=== PATIENT | female | born 1980 | race African-American/Black ===

== ENCOUNTER 2017-12-14 05:35 | Day surgery (SDC) | payer BC, OTHER ==
[2017-12-13 10:36] VITALS: BMI 29.7
--- NOTE | 2017-12-14 13:25 | HP ---
Past Medical History - Primary Care Physician PCP:: Benjamín Coto - Admission Chief Complaint: heavy menses, r/o EM polyp History of Present Illness: 37 yo f , , with hx of menorrhagia , admitted for hysteroscopy D&C , r/o EM polyp. rba discussed History Source: Patient Limitations to Obtaining History: No Limitations - Past Medical History Heme/Onc: Yes: Anemia (iron def, anemia) - Past Surgical History Hx Myomectomy: No Hx Transabdominal Cerclage: No - Smoking History Smoking history: Never smoked Have you smoked in the past 12 months: No Aproximately how many cigarettes per day: 0 - Alcohol/Substance Use Hx Alcohol Use: Yes (1 SHOT OF SAROC ON WEEKENDS) - Social History Usual Living Arrangement: Yes: With Spouse History of Recent Travel: No Home Medications - Allergies Allergies/Adverse Reactions: Allergies Allergy/AdvReac Type Severity Reaction Status Date / Time oxycodone [From Percocet] Allergy Severe Difficulty Verified 12/14/17 11:11 Breathing acetaminophen [From Percocet] Allergy Verified 12/14/17 11:10 - Home Medications Home Medications: Ambulatory Orders Ibuprofen [Motrin -] 600 mg PO Q4H PRN #1 tablet 09/09/13 Floridix Liquid Fe 10 ml PO BID 12/13/17 Review of Systems - Review of Systems Constitutional: reports: No Symptoms Eyes: reports: No Symptoms HENT: reports: No Symptoms Neck: reports: No Symptoms Cardiovascular: reports: No Symptoms Respiratory: reports: No Symptoms Gastrointestinal: reports: No Symptoms Genitourinary: reports: No Symptoms Breasts: reports: No Symptoms Reported Musculoskeletal: reports: No Symptoms Integumentary: reports: No Symptoms Neurological: reports: No Symptoms Endocrine: reports: No Symptoms Hematology/Lymphatic: reports: No Symptoms Psychiatric: reports: No Symptoms 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 Vital Signs: Vital Signs Temperature 98.6 F 12/14/17 11:05 Pulse Rate 72 12/14/17 11:05 Respiratory Rate 16 12/14/17 11:05 Blood Pressure 107/57 12/14/17 11:05 O2 Sat by Pulse Oximetry (%) 100 12/14/17 11:09 Constitutional: Yes: Well Nourished, No Distress, Calm Eyes: Yes: WNL, Conjunctiva Clear, EOM Intact HENT: Yes: WNL, Atraumatic, Normocephalic Neck: Yes: WNL, Supple, Trachea Midline Cardiovascular: Yes: WNL, Regular Rate and Rhythm Respiratory: Yes: WNL, Regular, CTA Bilaterally Gastrointestinal: Yes: WNL ...Rectal Exam: Yes: WNL Renal/: Yes: WNL Pelvis: Yes: WNL External Genitalia: Yes: Normal Vaginal Exam: Yes: Normal Cervix: Yes: Normal Uterus: Yes: Normal Adnexa: Not Palpable: Left, Right Breast(s): Yes: WNL Musculoskeletal: Yes: WNL Extremities: Yes: WNL Integumentary: Yes: WNL Neurological: Yes: WNL, Alert, Oriented ...Motor Strength: WNL Psychiatric: Yes: WNL, Alert, Oriented Problem List - Problem (1) Menorrhagia Code(s): N92.0 - EXCESSIVE AND FREQUENT MENSTRUATION WITH REGULAR CYCLE Qualifiers: Menorrahagia type: with regular cycle Qualified Code(s): N92.0 - Excessive and frequent menstruation with regular cycle (2) Anemia Code(s): D64.9 - ANEMIA, UNSPECIFIED Qualifiers: Anemia type: iron deficiency Iron deficiency anemia type: chronic blood loss Qualified Code(s): D50.0 - Iron deficiency anemia secondary to blood loss (chronic) Assessment/Plan hysteroscopy, D&C
[2017-12-14] MEDS ORDERED: PROPOFOL 20 ML ONE ×2 (13:59)
[2017-12-14] MEDS ORDERED: MIDAZOLAM HCL 2 MG/2 ML SINGLE DOSE VIAL ONE (13:59)
[2017-12-14] MEDS ORDERED: oxyCODONE HCL 5 MG TABLET PO PRN ×2 (14:52→15:37)
[2017-12-14] MEDS ORDERED: IBUPROFEN 600 MG TABLET (FP) PO PRN (14:52)
[2017-12-14] MEDS ORDERED: IBUPROFEN 800 MG/8 ML IJ IVPB PRN (14:52)
[2017-12-14] MEDS ORDERED: ONDANSETRON 4 MG/2 ML VIAL IVPUSH PRN (14:52)
[2017-12-14] MEDS ORDERED: ELECTROLYTE-148 SOLN 1,000 ML IV SCH (15:00)
[2017-12-14] MEDS ORDERED: LACTATED RINGERS SOLUTION 1,000 ML IV SCH (16:00)
[2017-12-14 18:42] VITALS: BP 110/64; PULSE 72; TEMP 97.8
--- NOTE | 2017-12-16 10:16 | PATH ---
Surgical Pathology Report Patient Name: EMETERIO BRIGHT [facility]. Rec. #: [id number] /Age/Gender: 1980 (Age: 37) / F Account: [id number] Location: [facility] Taken: 12/14/2017 Received: 12/15/2017 Reported: 12/16/2017 Physicians: Benjamín Coto M.D. Specimen(s) Received ENDOMETRIAL CURETTINGS Clinical History Excessive and frequent menstruation Final Diagnosis ENDOMETRIAL CURETTING, DILATION AND CURETTAGE: FRAGMENTS OF ENDOMETRIAL POLYP AND BENIGN EXOCERVICAL TISSUE. Electronically Signed Clary Carbajal M.D. Gross Description Received in formalin labeled "endometrial curetting," is a 2.3 x 2.0 x 0.3 cm aggregate of wilder soft tissue fragments. The formalin and filtered and the specimen is entirely submitted in one cassette. /12/15/2017 saudi12/15/2017
--- NOTE | 2017-12-17 05:58 | OP ---
DATE OF OPERATION: 12/14/2017 PREOPERATIVE DIAGNOSIS: Menometrorrhagia, rule out endometrial polyp. POSTOPERATIVE DIAGNOSES: Menometrorrhagia, endometrial polyp. SURGEON: Benjamín Coto MD ANESTHESIA: General. ESTIMATED BLOOD LOSS: 20 mL. OPERATION: Patient was taken to the operating room. Under adequate general anesthesia examination under anesthesia revealed external genitalia to be normal. Vagina was normal. Cervix was clean, no lesion and there was a cystocele and a rectocele and a 2nd-degree uterine polyp. Uterus was prominent. Adnexa: No masses palpable. Then with a weighted speculum in the vagina anterior lip of the cervix was grasped with a single-tooth tenaculum. Cervix was slightly dilated. Uterine cavity was sounded to 11 cm. Then hysteroscope was introduced. Visualization of endocervical canal appeared to be normal. Endometrium was normal, but there was a 1-cm polyp at the fundal area of the uterus. Both cornual regions were identified. No other abnormality was found. 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 Hysteroscope was introduced and the endometrium was clean. Patient tolerated the procedure well, left the OR in good condition. BENJAMÍN COTO M.D. [id number]
== END 2017-12-14 18:00 | disposition home or self-care (01) ==
LOC: JASU-SURG 05:35
PROVIDERS: ATTEND Obstetrics & Gynecology
PROC: 0UB98ZX Excision of Uterus, Via Natural or Artificial Opening Endoscopic, Diagnostic (ICD-10-PCS; principal; 2017-12-14 12:00)
PROC: 0UDB8ZX Extraction of Endometrium, Via Natural or Artificial Opening Endoscopic, Diagnostic (ICD-10-PCS; 2017-12-14 12:00)
DX: N84.0 Polyp of corpus uteri (principal); N92.1 Excessive and frequent menstruation with irregular cycle
CPT/HCPCS: 88305-TC; 94760

== ENCOUNTER 2024-07-02 12:58 | Observation (INO) | payer BC, OTHER ==
[2024-07-02 13:03] VITALS: BMI 30.7
[2024-07-02 14:37] LABS: BASO % 0.8 % (0-2.0); EOS % 2.6 % (0-4.5); HEMATOCRIT 31.7 % (32.4-45.2); HEMOGLOBIN 9.2 GM/dL (10.7-15.3); MCH 20.5 pg (25.7-33.7); MEAN CELL VOLUME 70.5 fl (80-96); MEAN PLT VOLUME 9.1 fl (7.5-11.1); MONO % 7.5 % (3.8-10.2); NEUT % 66.1 % (42.8-82.8); PLATELET COUNT 317 10^3/uL (134-434); RDW 21.6 % (11.6-15.6); WHITE BLOOD COUNT 5.2 K/mm3 (4.0-10.0)
[2024-07-02 14:39] LABS: INR 1.02 (0.83-1.09); PROTHROMBIN TIME (PATIENT) 11.7 SEC (9.7-13.0)
[2024-07-02 14:41] LABS: ALBUMIN 3.8 g/dl (3.4-5.0); BLOOD UREA NITROGEN 14.4 mg/dL (7-18)
[2024-07-02 14:42] LABS: ACTIVATED PTT 30.6 SECONDS (25.2-36.5)
[2024-07-02 14:46] LABS: BILIRUBIN,TOTAL 0.6 mg/dL (0.2-1); TOT PROT 7.9 g/dl (6.4-8.2)
[2024-07-02 14:59] LABS: ANISOCYTOSIS 2+; MACROCYTOSIS 0; OVALOCYTE 1+
[2024-07-02] MEDS ORDERED: ACETAMINOPHEN INJECTION 100 ML ONE (15:05)
[2024-07-02] MEDS: ACETAMINOPHEN 1000 MG/100 ML BAG IVPB ONE (15:13)
[2024-07-02] MEDS: LACTATED RINGERS SOLUTION 1000 ML INFUS.BAG IV ONE (16:43)
[2024-07-02] MEDS: APIXABAN 5 MG TABLET PO ONE (19:11)
[2024-07-02] MEDS ORDERED: ENOXAPARIN NA (PORCINE) 100 MG/1 ML DISP.SYRIN SQ ONE (19:22)
[2024-07-02] MEDS: ENOXAPARIN NA (PORCINE) 40 MG/0.4 ML DISP.SYRIN SQ ONE (19:25)
[2024-07-02] MEDS ORDERED: DOCUSATE SODIUM 100 MG CAPSULE (FP) PO PRN (21:56)
[2024-07-03 07:45] LABS: BASO % 0.8 % (0-2.0); EOS % 3.8 % (0-4.5); HEMATOCRIT 30.6 % (32.4-45.2); HEMOGLOBIN 8.8 GM/dL (10.7-15.3); LYMPH % 38.1 % (8-40); MCH 20.7 pg (25.7-33.7); MCHC 28.8 g/dl (32.0-36.0); MEAN CELL VOLUME 71.7 fl (80-96); MONO % 7.7 % (3.8-10.2); NEUT % 49.6 % (42.8-82.8); PLATELET COUNT 304 10^3/uL (134-434); RBC 4.27 M/mm3 (3.60-5.2); RDW 21.2 % (11.6-15.6); WHITE BLOOD COUNT 4.8 K/mm3 (4.0-10.0)
[2024-07-03 07:53] LABS: POTASSIUM 4.1 mmol/L (3.5-5.1)
[2024-07-03 07:59] LABS: CALCIUM 9.2 mg/dL (8.5-10.1)
[2024-07-03 08:00] LABS: BLOOD UREA NITROGEN 12.2 mg/dL (7-18)
[2024-07-03 08:03] LABS: CREATININE 0.8 mg/dL (0.55-1.3)
[2024-07-03] MEDS ORDERED: ENOXAPARIN NA (PORCINE) 80 MG/0.8 ML DISP.SYRIN SQ ONE (09:36)
[2024-07-03] MEDS: ENOXAPARIN NA (PORCINE) 80 MG/0.8 ML DISP.SYRIN SQ SCH (09:40)
[2024-07-03 12:28] LABS: RETICULOCYTES 2.96 % (0.5-1.5)
[2024-07-03 21:56] LABS: N-TERMINAL BNP 23.9 pg/ml (5-125)
[2024-07-04 07:59] LABS: POTASSIUM 4.3 mmol/L (3.5-5.1)
[2024-07-04 08:00] LABS: BASO % 0.9 % (0-2.0); EOS % 3.5 % (0-4.5); HEMATOCRIT 30.3 % (32.4-45.2); HEMOGLOBIN 8.8 GM/dL (10.7-15.3); MCH 20.8 pg (25.7-33.7); MCHC 28.9 g/dl (32.0-36.0); MEAN PLT VOLUME 9.3 fl (7.5-11.1); NEUT % 50.6 % (42.8-82.8); PLATELET COUNT 297 10^3/uL (134-434); RBC 4.21 M/mm3 (3.60-5.2); RDW 21.1 % (11.6-15.6); WHITE BLOOD COUNT 5.3 K/mm3 (4.0-10.0)
[2024-07-04 08:03] LABS: CALCIUM 9.2 mg/dL (8.5-10.1)
[2024-07-04 08:04] LABS: ALBUMIN 3.4 g/dl (3.4-5.0); BLOOD UREA NITROGEN 9.6 mg/dL (7-18)
[2024-07-04 08:06] LABS: CREATININE 0.9 mg/dL (0.55-1.3)
[2024-07-04 08:08] LABS: BILIRUBIN,TOTAL 0.5 mg/dL (0.2-1); TOT PROT 7.3 g/dl (6.4-8.2)
[2024-07-04 08:13] LABS: CHOLESTEROL 213 mg/dL (50-200)
[2024-07-04 08:14] LABS: LDL CHOLESTEROL (ONLY SJRH) 119 mg/dL (5-100)
[2024-07-04 08:17] LABS: HDL CHOLESTEROL 63 mg/dL (40-60)
[2024-07-04] MEDS: APIXABAN 5 MG TABLET PO SCH (22:15)
[2024-07-05] MEDS: APIXABAN 5 MG TABLET PO ONE (11:09)
[2024-07-05 14:55] VITALS: BP 114/74; PULSE 78; RESP 16; TEMP 98.8
[2024-07-05] MEDS ORDERED: APIXABAN 5 MG TABLET PO SCH (22:00)
== END 2024-07-05 15:18 | disposition home or self-care (01) ==
LOC: JER 12:58 → JERBED 18:55 → J4W 07-03 18:15
PROVIDERS: ADMIT Internal Medicine; ATTEND Internal Medicine
PROC: 3E033NZ Introduction of Analgesics, Hypnotics, Sedatives into Peripheral Vein, Percutaneous Approach (ICD-10-PCS; principal; 2024-07-02)
PROC: 3E013GC Introduction of Other Therapeutic Substance into Subcutaneous Tissue, Percutaneous Approach (ICD-10-PCS; 2024-07-02)
PROC: 3E013GC Introduction of Other Therapeutic Substance into Subcutaneous Tissue, Percutaneous Approach (ICD-10-PCS; 2024-07-02)
DX: I26.99 Other pulmonary embolism without acute cor pulmonale (principal); D64.9 Anemia, unspecified; Z88.5 Allergy status to narcotic agent; Z88.6 Allergy status to analgesic agent
CPT/HCPCS: 0241U-QW; 36415; 71045-TC-FY; 71275-TC; 80048; 80053; 80061; 82728; 83036; 83540; 83550; 83735; 83880; 84443; 84484; 84703; 85025; 85045; 85379; 85610; 85730; 86850; 86900; 86901; 93005; 93010; 93306-TC; 93970-TC; 99285-25; G0378; J0131

== ENCOUNTER 2024-09-13 08:25 | Emergency (ER) | payer BC, OTHER ==
[2024-09-13 08:32] VITALS: BMI 32.3
[2024-09-13] MEDS ORDERED: ALBUTEROL SO4 2.5/IPRATROPIUM 0.5 INH SOL 3 ML VIAL.NEB. NEB ONE (09:21)
[2024-09-13] MEDS ORDERED: KETOROLAC TROMETHAMINE 30 MG/1 ML VIAL ONE (09:22)
[2024-09-13] MEDS ORDERED: ACETAMINOPHEN INJECTION 100 ML ONE (09:22)
[2024-09-13] MEDS ORDERED: methylPREDNISolone NA SUCC 125 MG/2 ML VIAL ONE (09:22)
[2024-09-13 09:25] LABS: BASO % 0.9 % (0-2.0); EOS % 1.9 % (0-4.5); HEMATOCRIT 28.5 % (32.4-45.2); HEMOGLOBIN 8.9 GM/dL (10.7-15.3); LYMPH % 8.7 % (8-40); MCH 23.6 pg (25.7-33.7); MCHC 31.3 g/dl (32.0-36.0); MEAN CELL VOLUME 75.4 fl (80-96); MEAN PLT VOLUME 8.1 fl (7.5-11.1); NEUT % 78.5 % (42.8-82.8); PLATELET COUNT 273 10^3/uL (134-434); RBC 3.79 M/mm3 (3.60-5.2); RDW 20.6 % (11.6-15.6); WHITE BLOOD COUNT 4.9 K/mm3 (4.0-10.0)
[2024-09-13] MEDS: methylPREDNISolone NA SUCC 125 MG/2 ML VIAL IVPB ONE (09:31)
[2024-09-13] MEDS: SODIUM CHLORIDE 1,000 ML IV STA (09:31)
[2024-09-13] MEDS: ALBUTEROL SO4 2.5/IPRATROPIUM 0.5 INH SOL 3 ML VIAL.NEB. NEB ONE (09:31)
[2024-09-13] MEDS: ACETAMINOPHEN 1000 MG/100 ML BAG IVPB ONE (09:31)
[2024-09-13] MEDS: KETOROLAC TROMETHAMINE 30 MG/1 ML VIAL IVPUSH ONE (09:32)
[2024-09-13 09:45] LABS: INR 1.13 (0.83-1.09); PROTHROMBIN TIME (PATIENT) 12.3 SEC (9.7-13.0)
[2024-09-13 09:47] LABS: ACTIVATED PTT 35.6 SECONDS (25.2-36.5)
[2024-09-13 09:50] LABS: CHLORIDE 109 mmol/L (98-107); POTASSIUM 3.8 mmol/L (3.5-5.1); SODIUM 137 mmol/L (136-145)
[2024-09-13 09:51] LABS: CALCIUM 8.8 mg/dL (8.5-10.1)
[2024-09-13 09:53] LABS: ALBUMIN 3.8 g/dl (3.4-5.0); ANION GAP 6 mmol/L (4-13); BLOOD UREA NITROGEN 9.9 mg/dL (7-18); CO2 22 mmol/L (21-32); GLUCOSE,RANDOM 109 mg/dL (74-106); MAGNESIUM 1.7 mg/dL (1.8-2.4)
[2024-09-13 09:56] LABS: CREATININE 1.1 mg/dL (0.55-1.3); SGOT/AST 16 U/L (15-37); SGPT/ALT 18 U/L (13-61)
[2024-09-13 09:58] LABS: ALK PHOS 60 U/L (45-117); BILIRUBIN,TOTAL 0.7 mg/dL (0.2-1); TOT PROT 7.6 g/dl (6.4-8.2)
[2024-09-13 10:34] LABS: ANISOCYTOSIS 2+
[2024-09-13] MEDS ORDERED: AZITHROMYCIN 500 MG TABLET ONE (11:10)
[2024-09-13] MEDS ORDERED: MAGNESIUM 1GM/D5W - 1 GM/100 ML IVPB IVPB ONE (11:10)
[2024-09-13] MEDS ORDERED: CEFTRIAXONE 1 G/50 ML PREMIX 50 ML IVPB ONE (11:10)
[2024-09-13] MEDS: AZITHROMYCIN 250 MG TABLET PO ONE (11:22)
[2024-09-13] MEDS: MAGNESIUM 1GM/D5W - 1 GM/100 ML IVPB IVPB ONE (11:22)
[2024-09-13 11:26] LABS: HIV INTERPRETATION NEGATIVE (NEGATIVE)
[2024-09-13 13:50] VITALS: BP 113/58; PULSE 93; RESP 16; TEMP 98.9
== END 2024-09-13 14:30 | disposition home or self-care (01) ==
LOC: JER 08:25
PROC: 3E033GC Introduction of Other Therapeutic Substance into Peripheral Vein, Percutaneous Approach (ICD-10-PCS; principal; 2024-09-13)
PROC: 3E033NZ Introduction of Analgesics, Hypnotics, Sedatives into Peripheral Vein, Percutaneous Approach (ICD-10-PCS; 2024-09-13)
PROC: 3E03329 Introduction of Other Anti-infective into Peripheral Vein, Percutaneous Approach (ICD-10-PCS; 2024-09-13)
PROC: 3E0333Z Introduction of Anti-inflammatory into Peripheral Vein, Percutaneous Approach (ICD-10-PCS; 2024-09-13)
PROC: 3E033GC Introduction of Other Therapeutic Substance into Peripheral Vein, Percutaneous Approach (ICD-10-PCS; 2024-09-13)
PROC: 3E0337Z Introduction of Electrolytic and Water Balance Substance into Peripheral Vein, Percutaneous Approach (ICD-10-PCS; 2024-09-13)
PROC: 3E0F7GC Introduction of Other Therapeutic Substance into Respiratory Tract, Via Natural or Artificial Opening (ICD-10-PCS; 2024-09-13)
DX: J10.1 Influenza due to other identified influenza virus with other respiratory manifestations (principal); J45.21 Mild intermittent asthma with (acute) exacerbation; R05.9 Cough, unspecified; R53.1 Weakness; R51.9 Headache, unspecified; R50.9 Fever, unspecified; R09.89 Other specified symptoms and signs involving the circulatory and respiratory systems; R06.82 Tachypnea, not elsewhere classified; M79.10 Myalgia, unspecified site; R07.9 Chest pain, unspecified; Z20.822 Contact with and (suspected) exposure to COVID-19
CPT/HCPCS: 0241U-QW; 36415; 71045-TC-FY; 80053; 82550; 82553; 83735; 84484; 85025; 85610; 85730; 86803; 87389; 93005; 93010; 99285-25; J0131

== ENCOUNTER 2024-09-14 21:16 | Emergency (ER) | payer BC, OTHER ==
[2024-09-14 21:25] VITALS: BP 131/65; PULSE 111; RESP 24; TEMP 101.7; BMI 32.3
[2024-09-14] MEDS ORDERED: KETOROLAC TROMETHAMINE 30 MG/1 ML VIAL ONE (21:55)
[2024-09-14] MEDS: KETOROLAC TROMETHAMINE 30 MG/1 ML VIAL IM ONE (22:04)
[2024-09-14] MEDS ORDERED: predniSONE 20 MG TABLET (UD) ONE (22:18)
[2024-09-14] MEDS ORDERED: AZITHROMYCIN 250 MG TABLET ONE (22:18)
[2024-09-14] MEDS: predniSONE 20 MG TABLET (UD) PO ONE (22:22)
[2024-09-14] MEDS: AZITHROMYCIN 250 MG TABLET PO ONE (22:22)
[2024-09-14] MEDS: CEFUROXIME AXETIL 500 MG TABLET PO ONE (22:38)
== END 2024-09-14 23:00 | disposition home or self-care (01) ==
LOC: JERFT 21:16
PROC: 3E0233Z Introduction of Anti-inflammatory into Muscle, Percutaneous Approach (ICD-10-PCS; principal; 2024-09-14)
DX: J10.1 Influenza due to other identified influenza virus with other respiratory manifestations (principal); R05.9 Cough, unspecified; R50.9 Fever, unspecified
CPT/HCPCS: 99284-25